=== PATIENT | female | born 1930 | race Caucasian/White ===

== ENCOUNTER 2016-06-16 08:32 | Emergency (ER) | payer BC, MEDICARE ==
[2016-06-16] MEDS ORDERED: KETOROLAC TROMETHAMINE 60 MG/2 ML VIAL IM ONE ×2 (09:21→09:24)
[2016-06-16 09:53] LABS: Hematocrit 35.7 % (37.0-47.0); Hemoglobin 12.2 gm/dL (12.5-16.0); Mean Cell Volume 86.2 fl (78-100); Mean Corpuscular Hemoglobin 29.5 pg (27-31); Mean Corpuscular Hgb Conc 34.2 g/dl (32-36); Mean Platelet Volume 9.3 fl (6.0-9.5); Neutrophil # 7.1 K/mm3 (1.3-6.0); Neutrophil % 74.8 % (42-75.0); Platelet Count 220 K/mm3 (150-450); Red Blood Count 4.14 M/mm3 (4.2-5.4); Red Cell Distribution Width 12.3 % (11.5-14.0); White Blood Count 9.5 K/mm3 (4.0-10.5)
[2016-06-16] MEDS ORDERED: MELOXICAM 15 MG TABLET PO ONE (10:00)
[2016-06-16 10:15] LABS: Albumin * 3.7 gm/dl (3.4-5.0); Anion Gap 14.2 mmol/L (6.8-13.8); BUN/Creatinine Ratio 22.1 (9.0-21.6); Bilirubin, Total 0.4 mg/dL (0.0-1.1); Ca. Corrected For Albumin 9.5 mg/dL (8.4-10.2); Calcium * 9.6 mg/dL (7.9-10.9); Carbon Dioxide 26.5 mmol/L (24-32.6); Potassium 4.7 mmol/L (3.4-4.6); T4 Free * 1.24 ng/dL (0.76-1.46); TSH * 1.413 uIU/mL (0.358-3.74); Total Protein 7.2 gm/dL (6.2-8.2)
--- NOTE | 2016-06-16 11:03 | ERNOTE ---
Medical Problem HPI - Narrative Date of Service: 06/16/16 - General Chief Complaint: General Assessment Time Seen by Provider: 06/16/16 09:05 Source: patient, family Exam Limitations: clinical condition - Immun/Allergies/Home Medications Immunizations: IMMUNIZATION HX Immunizations Up to Date Yes History of Influenza Vaccine Yes Hx Pneumococcal Vaccination Yes Allergies/Adverse Reactions: Allergies amlodipine Allergy (Verified 06/16/16 08:56) atorvastatin calcium [From Lipitor] Allergy (Verified 06/16/16 08:56) fluoxetine HCl [From Prozac] Allergy (Verified 06/16/16 08:56) minoxidil Allergy (Verified 06/16/16 08:56) Home Medications: HOME MEDICATIONS Aspirin [Aspirin EC] 81 mg PO DAILY 06/16/16 [Last Taken Unknown] Carvedilol [Coreg] 12.5 mg PO BID 06/16/16 [Last Taken Unknown] Felodipine [Felodipine ER] 2.5 mg PO DAILY 06/16/16 [Last Taken Unknown] Irbesartan [Avapro] 300 mg PO HS 06/16/16 [Last Taken Unknown] Levothyroxine Sodium [Synthroid] 100 mcg PO DAILY 06/16/16 [Last Taken Unknown] Meloxicam [Mobic] 15 mg PO DAILY #14 tab 06/16/16 [Last Taken Unknown] Methyl Salicylate/Menth/Camph [Salonpas Patch] 1 each TP PRN PRN 06/16/16 [Last Taken Unknown] Nitroglycerin [Nitrostat] 0.4 mg SL BID 06/16/16 [Last Taken Unknown] Omeprazole 40 mg PO TID 06/16/16 [Last Taken Unknown] Polyethylene Glycol 3350 [Miralax] 17 gm PO DAILY 06/16/16 [Last Taken Unknown] Simvastatin 20 mg PO DAILY 06/16/16 [Last Taken Unknown] clonazePAM [Klonopin] 0.5 mg PO TID 06/16/16 [Last Taken Unknown] - History of Present History Narrative: Hurts all over. 6 days ago, med change. tramadol stopped, tylenol #3 started. Still hurts all over. Tylenol #3 really isn't helping. Didn't sleep well last night due to pain, wants something to make the pain better. Timing: constant, getting worse Severity: mild, moderate Modifying Factors - (Improves): Present: other - nothing Modifying Factors - (Worsens): Present: movement Review of Systems - Review of Systems Constitutional: Present: no symptoms reported EYE: Present: no symptoms reported ENT: Present: no symptoms reported Respiratory: Present: no symptoms reported Cardiology: Present: no symptoms reported Gastrointestinal/Abdominal: Present: constipation Genitourinary: Present: no symptoms reported Musculoskeletal: Present: See HPI Skin: Present: no symptoms reported Neurological: Present: pre-existing deficit Endocrine: Present: no symptoms reported Hematologic/Lymphatic: Present: no symptoms reported Psych: Present: no symptoms reported All Other Systems: All systems neg except as marked - Patient's Past Medical History Patient History - Medical: Anxiety, Chronic Pain, Fibromyalgia, GERD, Hypothyroidism Patient History - Cardiac/Respiratory: Angina, Hypertension, Hyperlipidemia Patient History - Cancer: Colon Patient History - Surgical Procedures: Angioplasty, Cholecystectomy, Colonoscopy , Hysterectomy, Total Knee Replacement Patient History - Other: None - Social History Living Situations: assisted living Abuse History: No History of abuse Psych History: Hx of Anxiety Smoking Status: Never smoker Have you smoked in the past 12 months: No Do you dip or chew tobacco: No Alcohol Use: rarely - Immunizations Immunizations Up to Date: Yes Hx Pneumococcal Vaccination: Yes History of Influenza Vaccine: Yes Physical Exam - Physical Exam General Appearance: Present: wd/wn, alert, no apparent distress, anxious Eye Exam: Normal inspection: bilateral, PERRL: bilateral, EOMI: bilateral Ears, Nose, Throat: Present: normal ENT inspection, hearing grossly normal Neck: Present: normal inspection, nontender Respiratory: Present: no respiratory distress, normal breath sounds Cardiovascular/Chest: Present: regular rate, rhythm, no murmur Gastrointestinal/Abdominal: Present: normal bowel sounds, nontender, nondistended, soft, no organomegaly Extremity Exam: Present: extremity edema Neurological Exam: Present: alert, oriented Skin Exam: Present: normal color, warm/dry ED Progress - Results and Orders Patient's Lab Results:: I have reviewed the patient's lab results. - Vital Signs Patient's Vital Signs:: I have reviewed the patient's vital signs. Vital Signs: Vital Signs 06/16/16 08:42 Temperature 36.3 C L Pulse Rate 60 Respiratory 15 Rate Blood Pressure 130/76 O2 Sat by Pulse 96 Oximetry - Progress/Reassessment Chief Complaint: General Assessment Progress:: Improved Departure - Departure Clinical Impression: Hyponatremia Osteoarthritis Qualifiers: Osteoarthritis location: multiple joints Osteoarthritis type: primary Qualified Code(s): M15.0 - Primary generalized (osteo)arthritis Condition: Good Instructions: Osteoarthritis, Hyponatremia Additional Instructions: Followup with your doctor next week. Referrals: Lalo Real DO [Primary Care Provider] - Prescriptions: Meloxicam [Mobic] 15 mg PO DAILY #14 tab
[2016-06-16 11:19] VITALS: BP 154/88
== END 2016-06-16 11:24 | disposition short-term general hospital (02) ==
LOC: MERGE 08:32 → ER 08:32
DX: M15.0 Primary generalized (osteo)arthritis (principal); E87.1 Hypo-osmolality and hyponatremia

== ENCOUNTER 2016-11-08 10:53 | Emergency (ER) | payer BC ==
[2016-11-08 11:08] VITALS: BP 127/56
[2016-11-08] MEDS ORDERED: CYCLOBENZAPRINE HCL 10 MG TABLET ONE (11:35)
[2016-11-08] MEDS ORDERED: CYCLOBENZAPRINE HCL 10 MG TABLET PO ONE (11:37)
--- NOTE | 2016-11-08 11:46 | ERNOTE ---
Medical Problem HPI - Narrative Date of Service: 11/08/16 - General Chief Complaint: Neck Pain/Injury Time Seen by Provider: 11/08/16 11:23 Source: patient, family, RN notes reviewed, old records Exam Limitations: no limitations - Immun/Allergies/Home Medications Immunizations: IMMUNIZATION HX Immunizations Up to Date Yes History of Influenza Vaccine Yes Hx Pneumococcal Vaccination Yes Allergies/Adverse Reactions: Allergies amlodipine Allergy (Intermediate, Verified 11/08/16 11:09) atorvastatin calcium [From Lipitor] Allergy (Verified 11/08/16 11:09) fluoxetine HCl [From Prozac] Allergy (Verified 11/08/16 11:09) minoxidil Allergy (Verified 11/08/16 11:09) Home Medications: HOME MEDICATIONS Aspirin [Aspirin Enteric Coated] 81 mg PO DAILY 10/26/13 [Last Taken 10/20/13 07 :00] Docusate Sodium [Colace] 100 mg PO DAILY 10/26/13 [Last Taken 10/20/13 17:30] Multivitamin [Multi-Vitamin Daily] 1 each PO DAILY 10/26/13 [Last Taken 08:00] Carvedilol [Coreg] 12.5 mg PO BID 06/16/16 [Last Taken Unknown] Felodipine [Felodipine ER] 2.5 mg PO DAILY 06/16/16 [Last Taken Unknown] Irbesartan [Avapro] 300 mg PO HS 06/16/16 [Last Taken Unknown] Levothyroxine Sodium [Synthroid] 100 mcg PO DAILY 06/16/16 [Last Taken Unknown] Methyl Salicylate/Menth/Camph [Salonpas Patch] 1 each TP PRN PRN 06/16/16 [Last Taken Unknown] Nitroglycerin [Nitrostat] 0.4 mg SL BID 06/16/16 [Last Taken Unknown] Omeprazole 40 mg PO TID 06/16/16 [Last Taken Unknown] Polyethylene Glycol 3350 [Miralax] 17 gm PO DAILY 06/16/16 [Last Taken Unknown] Simvastatin 20 mg PO DAILY 06/16/16 [Last Taken Unknown] clonazePAM [Klonopin] 0.5 mg PO TID 06/16/16 [Last Taken Unknown] Acetaminophen with Codeine [Tylenol-Codeine 300 MG/30 MG] 300 mg PO BID [Last Taken Unknown] Cyclobenzaprine HCl [Flexeril] 10 mg PO TID PRN #20 tab 11/08/16 [Last Taken Unknown] - History of Present History Narrative: 86 year old female brought to the ED by her daughter for right sided neck pain and stiffness that began 3 weeks ago without any injury. The patient resides at [facility]. She has been taking Tylenol #3 for pain with no improvement. She has also had a massage and has seen a chiropractor. She has an extensive history of arthritis. Date (Duration): 10/18/16 Review of Systems - Review of Systems Constitutional: Absent: recent illness, fever EYE: Present: no symptoms reported ENT: Absent: sore throat, throat swelling Respiratory: Absent: shortness of breath, orthopnea Cardiology: Present: no symptoms reported Gastrointestinal/Abdominal: Absent: abdominal pain, eating less, drinking less Genitourinary: Present: no symptoms reported Musculoskeletal: Present: muscle pain, muscle stiffness, neck pain. Absent: back pain Skin: Absent: rash, lesions, lumps, change in color Neurological: Absent: headache, dizziness/light-headedness, weakness, numbness, tingling Endocrine: Present: no symptoms reported Hematologic/Lymphatic: Present: no symptoms reported Psych: Present: no symptoms reported - Patient's Past Medical History Patient History - Medical: Anxiety, Arthritis, Chronic Pain, Fibromyalgia, GERD , Hypothyroidism Patient History - Cardiac/Respiratory: Angina, Hypertension, Hyperlipidemia, Myocardial Infarction Patient History - Cancer: Colon, No Hx of Cancer Patient History - Surgical Procedures: Appendectomy, Cholecystectomy, Hysterectomy, Total Knee Replacement Patient History - Other: None LMP (females 10-50): Menopausal - Family History Mother Family History - Medical: Father Family History - Medical: Family History - Cardiac/Respiratory: Cardiac Arrest, CHF - Social History Living Situations: group home Abuse History: No History of abuse Psych History: Hx of Anxiety, Hx of Depression Does anyone smoke in the home?: No Smoking Status: Never smoker Alcohol Use: none Drug Use: none - Immunizations Immunizations Up to Date: Yes Hx Pneumococcal Vaccination: Yes History of Influenza Vaccine: Yes Physical Exam - Physical Exam General Appearance: Present: wd/wn, alert, no apparent distress, other - Appropriately dressed and groomed, appears younger than reported age Ears, Nose, Throat: Present: normal ENT inspection Neck: Present: supple, limited range of motion, tender lateral - right. Absent : lymphadenopathy (R), lymphadenopathy (L), tender posterior midline, thyromegaly Respiratory: Present: no respiratory distress, normal breath sounds, no accessory muscle use, lungs clear Cardiovascular/Chest: Present: regular rate, rhythm, no murmur Extremity Exam: Present: normal inspection, normal range of motion Neurological Exam: Present: alert, oriented, normal mood/affect, no motor/ sensory deficits Skin Exam: Present: normal color, warm/dry ED Progress - Vital Signs Patient's Vital Signs:: I have reviewed the patient's vital signs. Vital Signs: Vital Signs 11/08/16 11/08/16 10:54 11:00 Temperature 36.8 C 36.6 C Pulse Rate 54 L Respiratory 16 Rate Blood Pressure 160/66 127/56 O2 Sat by Pulse 96 Oximetry - Progress/Reassessment Chief Complaint: Neck Pain/Injury Progress:: Unchanged Departure - Departure Clinical Impression: Neck muscle strain Qualifiers: Encounter type: initial encounter Qualified Code(s): S16.1XXA - Strain of muscle, fascia and tendon at neck level, initial encounter Disposition: Home Follow Up Needed Condition: Stable Instructions: Cervical Sprain, [id number] Additional Instructions: Try using heat on the sore area Muscle relaxant will cause drowsiness - take with regular Tylenol - NOT the Tylenol with codeine Follow up with Dr. Real if no improvement in 1 week Referrals: Lalo Real DO [Primary Care Provider] - Prescriptions: Cyclobenzaprine HCl [Flexeril] 10 mg PO TID PRN #20 tab PRN Reason: MUSCLE SPASMS
== END 2016-11-08 11:50 | disposition home or self-care (01) ==
LOC: ER 10:53
DX: S16.1XXA Strain of muscle, fascia and tendon at neck level, initial encounter (principal); X58.XXXA Exposure to other specified factors, initial encounter; Y93.9 Activity, unspecified; Y92.9 Unspecified place or not applicable; Y99.9 Unspecified external cause status; I10 Essential (primary) hypertension; K21.9 Gastro-esophageal reflux disease without esophagitis; E03.9 Hypothyroidism, unspecified; G89.29 Other chronic pain; Z85.038 Personal history of other malignant neoplasm of large intestine

== ENCOUNTER 2017-03-08 20:20 | Emergency (ER) | payer BC ==
[2017-03-08] MEDS ORDERED: ASPIRIN 81 MG TAB.CHEW PO ONE (20:35)
--- NOTE | 2017-03-08 20:39 | ERNOTE ---
Chest Pain/Cardiac HPI Date of Service: 03/08/17 Chief Complaint: Chest Pain Time Seen by Provider: 03/08/17 20:26 Source: patient Immunizations: IMMUNIZATION HX Immunizations Up to Date Yes History of Influenza Vaccine No Hx Pneumococcal Vaccination Yes Allergies/Adverse Reactions: Allergies amlodipine Allergy (Intermediate, Verified 03/08/17 20:31) atorvastatin calcium [From Lipitor] Allergy (Verified 03/08/17 20:31) fluoxetine HCl [From Prozac] Allergy (Verified 03/08/17 20:31) minoxidil Allergy (Verified 03/08/17 20:31) Home Medications: HOME MEDICATIONS Aspirin [Aspirin Enteric Coated] 81 mg PO DAILY 10/26/13 [Last Taken 10/20/13 07 :00] Docusate Sodium [Colace] 100 mg PO DAILY 10/26/13 [Last Taken 10/20/13 17:30] Multivitamin [Multi-Vitamin Daily] 1 each PO DAILY 10/26/13 [Last Taken 08:00] Carvedilol [Coreg] 12.5 mg PO BID 06/16/16 [Last Taken Unknown] Felodipine [Felodipine ER] 2.5 mg PO DAILY 06/16/16 [Last Taken Unknown] Irbesartan [Avapro] 300 mg PO HS 06/16/16 [Last Taken Unknown] Levothyroxine Sodium [Synthroid] 100 mcg PO DAILY 06/16/16 [Last Taken Unknown] Methyl Salicylate/Menth/Camph [Salonpas Patch] 1 each TP PRN PRN 06/16/16 [Last Taken Unknown] Nitroglycerin [Nitrostat] 0.4 mg SL BID 06/16/16 [Last Taken Unknown] Omeprazole 40 mg PO TID 06/16/16 [Last Taken Unknown] Polyethylene Glycol 3350 [Miralax] 17 gm PO DAILY 06/16/16 [Last Taken Unknown] Simvastatin 20 mg PO DAILY 06/16/16 [Last Taken Unknown] clonazePAM [Klonopin] 0.5 mg PO TID 06/16/16 [Last Taken Unknown] Acetaminophen with Codeine [Tylenol-Codeine 300 MG/30 MG] 300 mg PO BID [Last Taken Unknown] Cyclobenzaprine HCl [Flexeril] 10 mg PO TID PRN #20 tab 11/08/16 [Last Taken Unknown] Narrative: This is an 86-year-old female with a past medical history of "angina" and comes to the emergency department with a stuttering type chest pain. She reports the 2:00 this afternoon while she was watching television she developed a slow aching pain in her central chest. Started to get worse so she took a nitroglycerin which improved it but didn't take it away. A short time later she took a second nitroglycerin and the pain went away. She has had shortness of breath with this. She denies nausea or diaphoresis. The patient says the pain stayed away until about 7:00 when it came back. She took a nitroglycerin and waited didn't go away she activated EMS. EMS arrived and administered another nitroglycerin and she is again chest pain-free. She has not had any fever or chills nausea or vomiting diaphoresis. She does have it history of some sort of heart surgery "done on the lower part of my heart" 8-9 years ago. Patient says that she's had similar pain in the past and was told it was "angina " she doesn't have any dizziness blurred vision or neurologic symptoms Review of Systems - Review of Systems Constitutional: Present: no symptoms reported EYE: Present: no symptoms reported ENT: Present: no symptoms reported Respiratory: Present: shortness of breath Cardiology: Present: chest pain Gastrointestinal/Abdominal: Present: no symptoms reported. Absent: nausea, vomiting, diarrhea, constipation Genitourinary: Present: no symptoms reported Musculoskeletal: Present: no symptoms reported Skin: Present: no symptoms reported Neurological: Present: no symptoms reported Endocrine: Present: no symptoms reported - Patient's Past Medical History Patient History - Medical: Anxiety, Arthritis, Chronic Pain, Fibromyalgia, GERD , Hypothyroidism Patient History - Cardiac/Respiratory: Angina, Hypertension, Hyperlipidemia, Myocardial Infarction Patient History - Cancer: Colon, No Hx of Cancer Patient History - Surgical Procedures: Appendectomy, Cholecystectomy, Hysterectomy, Total Knee Replacement Patient History - Other: None LMP (females 10-50): Menopausal - Family History Mother Family History - Medical: Father Family History - Medical: Family History - Cardiac/Respiratory: Cardiac Arrest, CHF - Social History Living Situations: assisted living Abuse History: No History of abuse Psych History: Hx of Anxiety, Hx of Depression - Immunizations Immunizations Up to Date: Yes Hx Pneumococcal Vaccination: Yes History of Influenza Vaccine: No Physical Exam - Physical Exam General Appearance: Present: wd/wn, alert, no apparent distress Head Exam: Present: normal inspection, no evidence of injury Eye Exam: Normal inspection: bilateral, PERRL: bilateral, EOMI: bilateral Ears, Nose, Throat: Present: normal ENT inspection, normal pharynx Neck: Present: normal inspection, nontender Respiratory: Present: no respiratory distress, normal breath sounds, no accessory muscle use, chest nontender, lungs clear Cardiovascular/Chest: Present: regular rate, rhythm, no murmur Gastrointestinal/Abdominal: Present: normal bowel sounds, nontender, nondistended, soft Back Exam: Present: normal inspection, normal range of motion, no CVA tenderness Extremity Exam: Present: normal inspection, non-tender, no edema Neurological Exam: Present: alert, oriented, normal mood/affect, no motor/ sensory deficits Skin Exam: Present: normal color, warm/dry Lymphatic Exam: Present: no adenopathy ED Progress - Results and Orders Patient's Lab Results:: I have reviewed the patient's lab results. - Vital Signs Patient's Vital Signs:: I have reviewed the patient's vital signs. Vital Signs: Vital Signs 03/08/17 03/08/17 20:26 20:32 Temperature 36.7 C Pulse Rate 79 81 Respiratory 14 Rate Blood Pressure 154/57 O2 Sat by Pulse 96 Oximetry - EKG EKG: NSR EKG read: Interp. by me EKG Comments: Sinus rhythm at 77. First-degree AV block with [place] 214. Normal axis. Normal intervals. No signs of ST segment depression. Flattening in aVL. No acute ischemic changes - X-Ray X-Ray #1 X-Ray: chest Interpretation: Interp. by me X-ray Comments: No acute cardiopulmonary disease no acute disease X-Ray #2 X-Ray: chest Interpretation: Interp. by me X-ray Comments: The initial chest x-ray was one view. This showed some atelectasis or increased vascular markings in the right middle. This was felt to be poor inspiration. Repeated. - Progress/Reassessment Chief Complaint: Chest Pain Progress:: Improved Progress Note-Subjective: 03/08/17 22:16 The patient has been here for a couple of hours. Chest pain has not returned. Plan - Plan Plan: This is an 86-year-old female with risk factors who comes to the ER was very concerning pain. Central chest pain associated with shortness of breath which comes and goes. It lasts for an hour or more at a time. Seems to resolve with nitroglycerin. Patient has not had a stress test in more than a year. I believe this patient warrants mission to the hospital and consideration of stress test The patient sees Dr. Adan Qiu who is a inspector [employer] in [place] at [facility]. She says that she would like to be transferred there if she is going to need a stress test or something else. I will speak to this physician. She remains chest pain-free I spoke with the patient's cardiology group in [place]. They request that the patient have 2 sets of enzymes 6 after the symptoms stopped. The first set would be right with the patient gets here milliseconds that needs to be 6 hours after the chest pain. They requested a repeat EKG. If those are okay the patient could go home and follow-up with them right away on Friday. I discussed this with the patient and her family and they are accepting of this plan. They understand there is a very tiny chance that something would happen while they are at home and they are willing to accept this chance Repeat EKG shows normal sinus rhythm with first-degree AV block NJ interval is 231. Frequent PACs no ST segment changes no acute ischemic changes If the patient's repeat troponin is negative she will be discharged home. She is aware that she needs to follow up with her cardiology group on Friday. Both she and her daughter have verbalized understanding Departure Clinical Impression: Chest pain Qualifiers: Chest pain type: unspecified Qualified Code(s): R07.9 - Chest pain, unspecified - Departure Disposition: Home self-care Condition: Fair Instructions: Chest Pain Observation Additional Instructions: As we discussed her symptoms are concerning for your heart having acute problem , but all of our tests have failed to show something. This is not a perfect way of evaluating her heart, but it is the best available at this moment. I want you to go home and on Friday and he did call your inspector [employer] office. Told them he was seen in the emergency department and that the emergency department physician would like you to get a stress test done as soon as possible. He should be able to get a stress test Friday or Friday. If you have recurrent severe chest pain or new concerning symptom should need to return to the ER. Call your family doctor and set up a follow-up appointment.
[2017-03-08 20:42] LABS: Hemoglobin 11.1 gm/dL (12.5-16.0); Mean Cell Volume 92.9 fl (78-100); Mean Corpuscular Hemoglobin 30.3 pg (27-31); Mean Corpuscular Hgb Conc 32.6 g/dl (32-36); Mean Platelet Volume 10.3 fl (6.0-9.5); Neutrophil # 8.1 K/mm3 (1.3-6.0); Neutrophil % 79.9 % (42-75.0); Platelet Count 285 K/mm3 (150-450); Red Blood Count 3.66 M/mm3 (4.2-5.4); Red Cell Distribution Width 12.5 % (11.5-14.0); White Blood Count 10.2 K/mm3 (4.0-10.5)
[2017-03-08 21:04] LABS: ALT 13 U/L (19-67); AST 13 U/L (0-48); Albumin * 3.5 gm/dl (3.4-5.0); Alkaline Phosphatase * 62 U/L (50-170); Anion Gap 16.3 mmol/L (6.8-13.8); BUN/Creatinine Ratio 20.4 (9.0-21.6); Bilirubin, Total 0.3 mg/dL (0.0-1.1); Blood Urea Nitrogen 32 mg/dL (3-23); Ca. Corrected For Albumin 9.8 mg/dL (8.4-10.2); Calcium * 9.7 mg/dL (7.9-10.9); Carbon Dioxide 24.1 mmol/L (24-32.6); Chloride 98 mmol/L (97-106); Glucose * 131 mg/dL (70-110); Potassium 4.4 mmol/L (3.4-4.6); Sodium 134 mmol/L (132-142); Troponin I Less than 0.017 ng/ml (0.00-0.10)
[2017-03-08 21:51] LABS: Urine Appearance Clear; Urine Bilirubin Negative (NEGATIVE); Urine Blood Negative /ul (NEGATIVE); Urine Color Yellow; Urine Ketone Negative (NEGATIVE)
[2017-03-08 21:52] LABS: Urine Bacteria None Seen; Urine Nitrite Negative (NEGATIVE); Urine Protein 15 mg/dL (NEGATIVE); Urine RBC None Seen /hpf (0-5); Urine Urobilinogen Normal (NORMAL); Urine WBC None Seen /hpf (0-5)
[2017-03-09 02:25] VITALS: BP 171/84
== END 2017-03-09 02:24 | disposition home or self-care (01) ==
LOC: ER 20:20
DX: R07.9 Chest pain, unspecified (principal); Z85.038 Personal history of other malignant neoplasm of large intestine

== ENCOUNTER 2017-07-13 08:26 | Inpatient (IN) | payer MEDICARE, BC ==
[2017-07-13] MEDS ORDERED: METHYLPREDNISOLONE SOD SUCC/PF 40 MG/ML VIAL IV ONE (08:38)
[2017-07-13] MEDS ORDERED: ALBUTEROL SULFATE/IPRATROPIUM 3 ML NEBU IH ONE ×2 (08:38→09:42)
--- NOTE | 2017-07-13 08:50 | ERNOTE ---
Dyspnea - General Presenting Symptoms: shortness of breath, wheezing Time Seen by Provider: 07/13/17 08:30 Source: patient Exam Limitations: no limitations - Immun/Allergies/Home Medications Immunizations: IMMUNIZATION HX Immunizations Up to Date Yes History of Influenza Vaccine Yes Hx Pneumococcal Vaccination Yes Allergies/Adverse Reactions: Allergies amlodipine Allergy (Intermediate, Verified 07/10/17 08:37) atorvastatin calcium [From Lipitor] Allergy (Verified 07/10/17 08:37) fluoxetine HCl [From Prozac] Allergy (Verified 07/10/17 08:37) minoxidil Allergy (Verified 07/10/17 08:37) Home Medications: HOME MEDICATIONS Aspirin [Aspirin Enteric Coated] 81 mg PO DAILY 10/26/13 [Last Taken 10/20/13 07 :00] Docusate Sodium [Colace] 100 mg PO DAILY 10/26/13 [Last Taken 10/20/13 17:30] Multivitamin [Multi-Vitamin Daily] 1 each PO DAILY 10/26/13 [Last Taken 08:00] Carvedilol [Coreg] 12.5 mg PO BID 06/16/16 [Last Taken Unknown] Felodipine [Felodipine ER] 2.5 mg PO DAILY 06/16/16 [Last Taken Unknown] Irbesartan [Avapro] 300 mg PO HS 06/16/16 [Last Taken Unknown] Levothyroxine Sodium [Synthroid] 100 mcg PO DAILY 06/16/16 [Last Taken Unknown] Methyl Salicylate/Menth/Camph [Salonpas Patch] 1 each TP PRN PRN 06/16/16 [Last Taken Unknown] Nitroglycerin [Nitrostat] 0.4 mg SL BID 06/16/16 [Last Taken Unknown] Omeprazole 40 mg PO TID 06/16/16 [Last Taken Unknown] Polyethylene Glycol 3350 [Miralax] 17 gm PO DAILY 06/16/16 [Last Taken Unknown] Simvastatin 20 mg PO DAILY 06/16/16 [Last Taken Unknown] clonazePAM [Klonopin] 0.5 mg PO TID 06/16/16 [Last Taken Unknown] Acetaminophen with Codeine [Tylenol-Codeine 300 MG/30 MG] 300 mg PO BID [Last Taken Unknown] Cyclobenzaprine HCl [Flexeril] 10 mg PO TID PRN #20 tab 11/08/16 [Last Taken Unknown] Albuterol Sulfate [Ventolin HFA] 2 puff IH Q6H PRN 7 Days inhaler 07/10/17 [ Last Taken Unknown] Azithromycin [Zithromax] 250 mg PO DAILY #6 tablet 07/10/17 [Last Taken Unknown] predniSONE [Deltasone] 20 mg PO BID #10 tablet 07/10/17 [Last Taken Unknown] Acetaminophen with Codeine [Tylenol with Codeine #3 Tablet] 1 each PO Q6H PRN [Last Taken Unknown] Meloxicam [Mobic] 15 mg PO DAILY 07/13/17 [Last Taken Unknown] - History of Present Illness Narrative: Patient was seen by me 3 days ago here for bronchitis and bronchospasm. Patient appeared to have bronchitis and was started on antibiotics and oral steroids and a Ventolin inhaler, however she has not gotten better and in fact she feels like she's gotten somewhat worse. She states she is having some difficulty controlling her blood pressure at herself living facility as well. She rates the symptoms as at least moderate in severity. 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 Initiating event: Reports: upper resp illness Frequency of episodes: Reports: occassional episodes Modifying Factors - (Improves): Reports: nothing Modifying Factors (Worsens): Reports: coughing Prior Treatment: Reports: recently seen, treated by physician, currently on antibiotics Review of Systems - Review of Systems Constitutional: Present: See HPI EYE: Present: no symptoms reported ENT: Present: no symptoms reported Respiratory: Present: See HPI Cardiology: Present: no symptoms reported Gastrointestinal/Abdominal: Present: no symptoms reported Genitourinary: Present: no symptoms reported Musculoskeletal: Present: no symptoms reported Skin: Present: no symptoms reported Neurological: Present: no symptoms reported Endocrine: Present: no symptoms reported Hematologic/Lymphatic: Present: no symptoms reported Psych: Present: no symptoms reported - Patient's Past Medical History Patient History - Medical: Anxiety, Arthritis, Chronic Pain, Fibromyalgia, GERD , Hypothyroidism Patient History - Cardiac/Respiratory: Angina, Hypertension, Hyperlipidemia, Myocardial Infarction Patient History - Cancer: Colon, No Hx of Cancer Patient History - Surgical Procedures: Appendectomy, Cholecystectomy, Hysterectomy, Total Knee Replacement Patient History - Other: None - Family History Mother Family History - Medical: Father Family History - Medical: Family History - Cardiac/Respiratory: Cardiac Arrest, CHF - Social History Abuse History: No History of abuse Psych History: Hx of Anxiety, Hx of Depression - Immunizations Immunizations Up to Date: Yes Hx Pneumococcal Vaccination: Yes History of Influenza Vaccine: Yes Physical Exam - Physical Exam General Appearance: Present: wd/wn, alert, moderate distress Head Exam: Present: normal inspection, no evidence of injury Eye Exam: Normal inspection: bilateral, PERRL: bilateral Ears, Nose, Throat: Present: normal ENT inspection, H, normal pharynx Neck: Present: normal inspection, nontender Respiratory: Present: no accessory muscle use, chest nontender, respiratory distress, rhonchi, wheezing Cardiovascular/Chest: Present: regular rate, rhythm, no murmur, normal peripheral pulses Gastrointestinal/Abdominal: Present: normal bowel sounds, nontender, nondistended, soft, no organomegaly Rectal Exam: Present: deferred Back Exam: Present: normal inspection, normal range of motion Extremity Exam: Present: normal inspection, non-tender, no edema, normal range of motion Neurological Exam: Present: alert, oriented, normal mood/affect Skin Exam: Present: normal color, warm/dry Lymphatic Exam: Present: no adenopathy ED Progress - Results and Orders Patient's Lab Results:: I have reviewed the patient's lab results. - Vital Signs Patient's Vital Signs:: I have reviewed the patient's vital signs. - EKG EKG: NSR EKG read: Interp. by me - X-Ray X-Ray #1 X-Ray: chest Interpretation: Reviewed by me Plan - Plan Plan: Patient is failed outpatient treatment and put her in for more aggressive pulmonary care. Departure Clinical Impression: Bronchitis, Bronchospasm - Departure Disposition: Still a patient Condition: Fair
[2017-07-13 08:56] LABS: Hemoglobin 11.5 gm/dL (12.5-16.0); Mean Cell Volume 86.4 fl (78-100); Mean Corpuscular Hemoglobin 30.1 pg (27-31); Mean Corpuscular Hgb Conc 34.8 g/dl (32-36); Neutrophil # 3.9 K/mm3 (1.3-6.0); Neutrophil % 70.5 % (42-75.0); Platelet Count 201 K/mm3 (150-450); Red Blood Count 3.82 M/mm3 (4.2-5.4); Red Cell Distribution Width 12.7 % (11.5-14.0); White Blood Count 5.5 K/mm3 (4.0-10.5)
[2017-07-13 09:15] LABS: ALT 19 U/L (19-67); AST 20 U/L (0-48); Albumin * 3.4 gm/dl (3.4-5.0); Alkaline Phosphatase * 55 U/L (50-170); Anion Gap 13.6 mmol/L (6.8-13.8); BNP * 3044 pg/mL (5-550); BUN/Creatinine Ratio 21.2 (9.0-21.6); Bilirubin, Total 0.4 mg/dL (0.0-1.1); Blood Urea Nitrogen 22 mg/dL (3-23); Ca. Corrected For Albumin 9.7 mg/dL (8.4-10.2); Calcium * 9.5 mg/dL (7.9-10.9); Carbon Dioxide 27.3 mmol/L (24-32.6); Chloride 99 mmol/L (97-106); Glucose * 113 mg/dL (70-110); Potassium 3.9 mmol/L (3.4-4.6); Sodium 136 mmol/L (132-142); Total Protein 6.6 gm/dL (6.2-8.2); Troponin I Less than 0.017 ng/ml (0.00-0.10)
[2017-07-13] MEDS ORDERED: METHYLPREDNISOLONE SOD SUCC/PF 125 MG/2 ML VIAL ONE (09:42)
[2017-07-13] MEDS ORDERED: ALBUTEROL SULFATE/IPRATROPIUM 3 ML NEBU IH SCH ×2 (14:30→14:45)
--- NOTE | 2017-07-13 14:44 | HP ---
Chief Complaint - Chief Complaint Date of Service: 07/13/17 Time of Service: 15:30 Chief Complaint: Shortness of breath and wheezing for the last 3 days. History of Present Illness: Patient is a 87-year-old WF with a history of HTN, CAD[OK in 2009 with PTCA to OM1 and with repeat cath showing diffuse collaterals and occluded OM1], carotid artery disease[50-70% blockage bilaterally] OA, diverticulosis, hypothyroidism who came into the ER for evaluation of SOB, wheezing for the last 3-4 days. She was seen 3 days ago and was started on oral prednisone, Ventolin inhaler and an oral antibiotic and had no improvement. She was given IV steroids and DuoNeb with improvement in the ER. CXR was negative for infiltrate. WBC 5.5, troponin <0.1017, BNP 3044. She was admitted into observation for further care and treatment. - Patient's Past Medical History Additional Info: PAST MEDICAL HISTORY: Hypertension, hyperlipidemia. Coronary artery disease: [place] in 2009 with PTCA to OM1; repeat cath in 2013- chronically occluded circumflex. Carotid artery disease: Bilaterally 50-70% blockage. Diverticulosis. Hypothyroidism. ObesityBMI 35. Osteoarthritis with RT TKA Anxiety. Chronic constipation. Additional Info: PAST SURGICAL HISTORY: Appendectomy Bilateral cataract surgery Laparoscopic cholecystectomy-12/2014 Hysterectomy. RT TKA. Multiple colonoscopies. Patient History - Other: None - Family History Mother Family History - Medical: - - 28[uterine infection]. Father Family History - Medical: - 73- [place],CAD - Social History Living Situations: assisted living Abuse History: No History of abuse Psych History: Hx of Anxiety, Hx of Depression Smoking Status: Never smoker Have you smoked in the past 12 months: No Do you dip or chew tobacco: No Alcohol Use: none Drug Use: none - Immunizations Immunizations Up to Date: Yes Hx Pneumococcal Vaccination: Yes History of Influenza Vaccine: Yes Review Of Systems (GEN) - Review of Systems Generalized/Overall Review: Absent: Chills, Fever Respiratory: Present: Cough, Wheezing Abdominal: Absent: Nausea, Vomiting, Diarrhea Allergies/Adverse Reactions: Allergies Allergy/AdvReac Type Severity Reaction Status Date / Time amlodipine Allergy Intermediate Verified 07/13/17 12:13 atorvastatin calcium Allergy Verified 07/13/17 12:13 [From Lipitor] fluoxetine HCl [From Prozac] Allergy Verified 07/13/17 12:13 minoxidil Allergy Verified 07/13/17 12:13 Home Medications: HOME MEDICATIONS Aspirin [Aspirin Enteric Coated] 81 mg PO DAILY 10/26/13 [Last Taken 07/13/17 08 :00] Multivitamin [Multi-Vitamin Daily] 1 each PO DAILY 10/26/13 [Last Taken 08:00] Carvedilol [Coreg] 12.5 mg PO BID 06/16/16 [Last Taken 07/13/17 08:00] Felodipine [Felodipine ER] 2.5 mg PO DAILY 06/16/16 [Last Taken 07/13/17 07:00] Irbesartan [Avapro] 300 mg PO HS 06/16/16 [Last Taken 07/12/17 20:00] Levothyroxine Sodium [Synthroid] 100 mcg PO DAILY 06/16/16 [Last Taken 07/13/17 08:00] Methyl Salicylate/Menth/Camph [Salonpas Patch] 1 each TP PRN PRN 06/16/16 [Last Taken Unknown] Nitroglycerin [Nitrostat] 0.4 mg SL BID PRN 06/16/16 [Last Taken Unknown] Omeprazole 40 mg PO TID 06/16/16 [Last Taken 07/13/17 07:00] Polyethylene Glycol 3350 [Miralax] 17 gm PO DAILY PRN 06/16/16 [Last Taken Unknown] Simvastatin 20 mg PO DAILY 06/16/16 [Last Taken 07/12/17 20:00] clonazePAM [Klonopin] 0.5 mg PO TID 06/16/16 [Last Taken 07/13/17 08:00] Acetaminophen with Codeine [Tylenol-Codeine 300 MG/30 MG] 300 mg PO BID [Last Taken 07/13/17 08:00] Albuterol Sulfate [Ventolin HFA] 2 puff IH Q6H PRN 7 Days inhaler 07/10/17 [ Last Taken Unknown] Azithromycin [Zithromax] 250 mg PO DAILY #6 tablet 07/10/17 [Last Taken 20:00] predniSONE [Deltasone] 20 mg PO BID #10 tablet 07/10/17 [Last Taken 07/13/17 08: 00] Acetaminophen [Tylenol] 1,000 mg PO TID 07/13/17 [Last Taken 07/13/17 08:00] Meloxicam [Mobic] 15 mg PO DAILY 07/13/17 [Last Taken 07/13/17 08:00] Exam - Exam Vital Signs: Vital Signs - Last Taken Temp 36.4 C L 07/13/17 11:45 Pulse 76 07/13/17 14:16 Resp 20 07/13/17 11:45 BP 182/80 07/13/17 12:24 Pulse Ox 96 07/13/17 11:45 Constitutional: Present: Elderly, Obese, Looks Younger than stated age - A and O x 3, in NAD. ENT Exam: Present: hearing grossly normal, dry mucous membranes Eye Exam: left eye: PERRL, EOMI Neck: Present: normal inspection, trachea midline Breasts: Present: Exam deferred Respiratory: Present: other - DIFFUSE BILATERAL WHEEZING; no crackles, no rhonchi. Cardiovascular/Chest: Present: regular rate, rhythm. Absent: tachycardia Peripheral Pulses: carotid (R): 2+, carotid (L): 2+ Abdomen: Present: Normal bowel sounds, soft, nontender, obese /Rectal: Present: Exam deferred Extremity: Present: normal inspection, no pedal edema Skin Exam: Present: normal color, warm/dry Appearance: Present: appropriate appearance, appropriate insight Diagnostic Studies: Laboratory Tests 07/13/17 08:55 WBC 5.5 Hgb 11.5 L Hct 33.0 L Plt Count 201 07/13/17 08:55 Plasma Sodium 136 Potassium 3.9 Chloride 99 Carbon Dioxide 27.3 BUN 22 Creatinine 1.04 Est GFR (Non-Af Amer) 53 L D Random Glucose 113 H Calcium Adj for Albumin 9.7 Total Bilirubin 0.4 AST 20 ALT 19 Alkaline Phosphatase 55 Total Protein 6.6 Albumin 3.4 07/13/17 08:55 Troponin I < 0.017 B-Natriuretic Peptide 3044 H Mycoplasma pneumon IgM non reactive CXR PA/lateral: 07/13/17: Cardiac silhouette is stable but enlarged. Pulmonary vasculature is normal. Osseous structures are WNL for age. IMPRESSION: No acute cardiopulmonary processes detected. Assessment/Plan - Narrative Narrative: 1. BRONCHITIS WITH BRONCHOSPASM: Solu-Medrol 60 mg IV every 6 hours. PPI 30 minutes before breakfast. DuoNeb IH 4 times a day. Pulmocort 0.5 mg IH twice a day. IV fluids normal saline at 50 mL an hour. 2. HYPERTENSION: Continue Felodipine ER 10 mg in a.m., Avapro [ Ibesartan 300 mg] in p.m. and carvedilol 12.5 mg twice a day. 3. CAD: S/P [place] in 2009; PTCA to NAT. Repeat cath in 2013 occluded OM1. 4. CHRONIC GERD: Omeprazole 40 mg 30 minutes before breakfast. 5. CHRONIC ANXIETY: Clonazepam 0.5 mg 3 times a day. 6. OTHER CHRONIC PROBLEMS: These include osteoarthritis with RT TKA, diverticulosis, carotid artery stenoses[60-70% bilaterally], chronic constipation, colon polyps, obesity [BMI- 35.0] which were reviewed and stable. 5. DVT PROPHYLAXIS: Ambulate-in observation status. CODE STATUS: DO NOT RESUSCITATE. - Assessment/Plan (1) Bronchitis with bronchospasm Problem: Acute (2) Hypertension Problem: Chronic Qualifiers: Hypertension type: essential hypertension Qualified Code(s): I10 - Essential (primary) hypertension (3) CAD (coronary artery disease), [place] coronary artery Assessment: OK in 2009 - PTCA to OM[ repeat cath in 2014 shows blocked circumflex system]. Problem: Chronic Qualifiers: [place] vs. transplanted heart: [place] heart (4) Chronic GERD Problem: Chronic (5) Anxiety Problem: Chronic
[2017-07-13] MEDS ORDERED: FELODIPINE 2.5 MG PO SCH (14:45)
[2017-07-13] MEDS: NORMAL SALINE 1,000 ML IV PRN (14:50)
[2017-07-13] MEDS: ALBUTEROL SULFATE/IPRATROPIUM 3 ML NEBU IH SCH ×2 (15:29→19:26)
[2017-07-13] MEDS: BUDESONIDE 0.5 MG/2 ML VIAL.NEB IH SCH ×2 (15:33→19:23)
[2017-07-13] MEDS: METHYLPREDNISOLONE SOD SUCC 60 MG in WATER FOR INJ.,BACTERIOSTATIC 0 ML IV SCH ×2 (16:12→21:22)
[2017-07-13] MEDS: FELODIPINE 5 MG TAB.SR.24H PO SCH (16:12)
[2017-07-13] MEDS: CARVEDILOL 12.5 MG TABLET PO SCH ×2 (16:12→21:23)
[2017-07-13] MEDS: clonazePAM 0.5 MG TABLET PO SCH (16:15)
[2017-07-13] MEDS ORDERED: BUDESONIDE 0.25 MG/2 ML VIAL.NEB IH SCH (19:00)
[2017-07-13] MEDS: POLYETHYLENE GLYCOL 3350 119 GM BTL PO SCH (19:30)
[2017-07-13] MEDS: SIMVASTATIN 20 MG TABLET PO SCH (21:22)
[2017-07-13] MEDS: LOSARTAN POTASSIUM 50 MG TABLET PO SCH (21:22)
[2017-07-14] MEDS: METHYLPREDNISOLONE SOD SUCC 60 MG in WATER FOR INJ.,BACTERIOSTATIC 0 ML IV SCH ×4 (02:50→20:58)
[2017-07-14] MEDS: LEVOTHYROXINE SODIUM 100 MCG TABLET PO SCH (06:38)
[2017-07-14] MEDS: PANTOPRAZOLE SODIUM 40 MG TABLET.EC PO SCH (06:39)
[2017-07-14] MEDS: ALBUTEROL SULFATE/IPRATROPIUM 3 ML NEBU IH SCH ×4 (07:15→18:08)
[2017-07-14] MEDS: BUDESONIDE 0.5 MG/2 ML VIAL.NEB IH SCH ×2 (07:16→18:09)
[2017-07-14] MEDS: FELODIPINE 5 MG TAB.SR.24H PO SCH (08:35)
[2017-07-14] MEDS: CARVEDILOL 12.5 MG TABLET PO SCH ×2 (08:35→20:57)
[2017-07-14] MEDS: clonazePAM 0.5 MG TABLET PO SCH ×3 (08:40→16:55)
[2017-07-14] MEDS: NORMAL SALINE 1,000 ML IV PRN (10:38)
[2017-07-14] MEDS: ALBUTEROL SULFATE 2.5 MG/0.5 ML VIAL.NEB IH PRN (14:14)
[2017-07-14] MEDS ORDERED: LEVOFLOXACIN 750 MG TABLET PO ONE (16:30)
[2017-07-14] MEDS ORDERED: LEVOFLOXACIN 750 MG TABLET PO SCH (16:30)
--- NOTE | 2017-07-14 18:30 | PN ---
Subjective - Date and Time Seen Date: 07/14/17 Time: 18:30 Subjective Narrative: [place] reports severe shortness of breath, fatigue, weakness, and productive coughing. Objective - Vitals Vitals: Last Vital Signs Temp 36.5 C 07/14/17 15:31 Pulse 81 07/14/17 18:09 Resp 18 07/14/17 18:09 BP 154/76 07/14/17 15:31 Pulse Ox 94 07/14/17 18:09 - Exam Constitutional: Present: Alert, Oriented x3, Cooperative Respiratory: Present: decreased breath sounds, wheezing Cardiovascular/Chest: Present: regular rate, rhythm, no murmur Abdomen: Present: Normal bowel sounds, soft, nontender, nondistended Skin Exam: Present: normal color, warm/dry, no cyanosis Assessment/Plan Plan Narrative: [place] is an 87 yo female with severe dyspnea with COPD exacerbation. She is unable to get out of bed and ambulate due to dyspnea. Breathing is difficult even in bed. She has severely elevated blood pressure. She will need > 2 more midnights to decrease the inflammation in lungs for dyspnea/COPD exacerbation. Will continue IV steroids and antibiotics for COPD exacerbation. Patient is anxious with dyspnea and blood pressure is usually controlled. Will give anxiolytics, if blood pressure remains elevated >180 systolic will add antihypertensives. Will make patient acute inpatient for further need for inpatient treatment. - Problems/Diagnosis (1) COPD exacerbation Problem: Acute (2) Accelerated hypertension Problem: Acute (3) Hypertensive urgency Problem: Acute
[2017-07-14] MEDS: POLYETHYLENE GLYCOL 3350 119 GM BTL PO SCH (19:27)
[2017-07-14] MEDS: LOSARTAN POTASSIUM 50 MG TABLET PO SCH (20:58)
[2017-07-14] MEDS: SIMVASTATIN 20 MG TABLET PO SCH (20:58)
[2017-07-14] MEDS ORDERED: ENOXAPARIN SODIUM 40 MG/0.4 ML SYRG SC SCH (23:45)
[2017-07-15] MEDS ORDERED: ENOXAPARIN SODIUM 40 MG/0.4 ML SYRG SC SCH (00:05)
[2017-07-15] MEDS ORDERED: ENALAPRILAT DIHYDRATE 1.25 MG/ML VIAL IV ONE (02:30)
[2017-07-15] MEDS: METHYLPREDNISOLONE SOD SUCC 60 MG in WATER FOR INJ.,BACTERIOSTATIC 0 ML IV SCH ×4 (03:09→21:40)
[2017-07-15] MEDS: BUDESONIDE 0.5 MG/2 ML VIAL.NEB IH SCH ×2 (06:08→18:16)
[2017-07-15] MEDS: ALBUTEROL SULFATE/IPRATROPIUM 3 ML NEBU IH SCH ×4 (06:09→18:16)
[2017-07-15] MEDS: NORMAL SALINE 1,000 ML IV PRN (06:41)
[2017-07-15] MEDS: PANTOPRAZOLE SODIUM 40 MG TABLET.EC PO SCH (06:42)
[2017-07-15] MEDS: LEVOTHYROXINE SODIUM 100 MCG TABLET PO SCH (06:42)
[2017-07-15] MEDS: CARVEDILOL 12.5 MG TABLET PO SCH ×2 (08:51→21:38)
[2017-07-15] MEDS: HYDROCHLOROTHIAZIDE 25 MG TABLET PO SCH (08:51)
[2017-07-15] MEDS: hydrALAZINE HCL 10 MG TABLET PO SCH ×3 (08:51→21:37)
[2017-07-15] MEDS: FELODIPINE 5 MG TAB.SR.24H PO SCH (08:52)
[2017-07-15] MEDS: ENOXAPARIN SODIUM 40 MG/0.4 ML SYRG SC SCH (08:52)
[2017-07-15] MEDS: clonazePAM 0.5 MG TABLET PO SCH ×3 (08:55→16:25)
--- NOTE | 2017-07-15 12:14 | PN ---
Subjective - Date and Time Seen Date: 07/15/17 Time: 12:14 Subjective Narrative: Short of breath. Headache, dizzy. Does not feel well. Objective - Vitals Vitals: Last Vital Signs Temp 36.4 C L 07/15/17 10:40 Pulse 70 07/15/17 10:40 Resp 18 07/15/17 10:40 BP 193/86 07/15/17 10:40 Pulse Ox 92 07/15/17 10:40 - Exam Constitutional: Present: Alert, Oriented x3, Cooperative ENT Exam: Present: hard of hearing Respiratory: Present: decreased breath sounds, wheezing, other - visible dyspnea Cardiovascular/Chest: Present: regular rate, rhythm, no murmur Abdomen: Present: Normal bowel sounds, soft, nontender, nondistended Skin Exam: Present: normal color, warm/dry, no cyanosis Assessment/Plan Plan Narrative: [place] remains very dyspneic. No episodes of hypoxia. Blood pressures are severely elevated, >180 systolic. Not stable for discharge. On home medications. Adding HCTZ, may add hydralazine. Continue treatment of COPD exacerbation and bronchitis with antibiotics, steroids, and breathing treatments. - Problems/Diagnosis (1) COPD exacerbation Problem: Resolved (2) Accelerated hypertension Problem: Acute (3) Hypertensive urgency Problem: Acute
[2017-07-15] MEDS: POLYETHYLENE GLYCOL 3350 119 GM BTL PO SCH (21:36)
[2017-07-15] MEDS: LOSARTAN POTASSIUM 50 MG TABLET PO SCH (21:39)
[2017-07-15] MEDS: SIMVASTATIN 20 MG TABLET PO SCH (21:40)
[2017-07-16] MEDS: hydrALAZINE HCL 10 MG TABLET PO SCH ×4 (02:52→22:23)
[2017-07-16] MEDS: METHYLPREDNISOLONE SOD SUCC 60 MG in WATER FOR INJ.,BACTERIOSTATIC 0 ML IV SCH ×4 (02:54→22:23)
[2017-07-16] MEDS: ALBUTEROL SULFATE 2.5 MG/0.5 ML VIAL.NEB IH PRN (03:03)
[2017-07-16 06:02] LABS: Hematocrit 33.8 % (37.0-47.0); Hemoglobin 11.9 gm/dL (12.5-16.0); Mean Cell Volume 85.4 fl (78-100); Mean Corpuscular Hemoglobin 30.1 pg (27-31); Mean Corpuscular Hgb Conc 35.2 g/dl (32-36); Mean Platelet Volume 9.9 fl (6.0-9.5); Neutrophil # 6.7 K/mm3 (1.3-6.0); Neutrophil % 84.2 % (42-75.0); Platelet Count 239 K/mm3 (150-450); Red Blood Count 3.96 M/mm3 (4.2-5.4); Red Cell Distribution Width 12.1 % (11.5-14.0)
[2017-07-16] MEDS: BUDESONIDE 0.5 MG/2 ML VIAL.NEB IH SCH ×2 (06:05→18:33)
[2017-07-16] MEDS: ALBUTEROL SULFATE/IPRATROPIUM 3 ML NEBU IH SCH ×4 (06:05→18:34)
[2017-07-16 06:26] LABS: Albumin * 3.1 gm/dl (3.4-5.0); Anion Gap 11.6 mmol/L (6.8-13.8); BUN/Creatinine Ratio 26.8 (9.0-21.6); Bilirubin, Total 0.4 mg/dL (0.0-1.1); Ca. Corrected For Albumin 9.9 mg/dL (8.4-10.2); Calcium * 9.5 mg/dL (7.9-10.9); Carbon Dioxide 29.6 mmol/L (24-32.6); Potassium 3.2 mmol/L (3.4-4.6); Total Protein 6.2 gm/dL (6.2-8.2)
[2017-07-16] MEDS: LEVOTHYROXINE SODIUM 100 MCG TABLET PO SCH (07:27)
[2017-07-16] MEDS: PANTOPRAZOLE SODIUM 40 MG TABLET.EC PO SCH (07:27)
[2017-07-16] MEDS: HYDROCHLOROTHIAZIDE 25 MG TABLET PO SCH (09:20)
[2017-07-16] MEDS: FELODIPINE 5 MG TAB.SR.24H PO SCH (09:20)
[2017-07-16] MEDS: ENOXAPARIN SODIUM 40 MG/0.4 ML SYRG SC SCH (09:20)
[2017-07-16] MEDS: CARVEDILOL 12.5 MG TABLET PO SCH ×2 (09:20→22:21)
[2017-07-16] MEDS: clonazePAM 0.5 MG TABLET PO SCH ×3 (09:29→16:14)
[2017-07-16] MEDS ORDERED: POTASSIUM CHLORIDE 20 MEQ TABLET.SA PO ONE (09:52)
[2017-07-16] MEDS ORDERED: LEVOFLOXACIN 750 MG TABLET PO SCH (11:00)
--- NOTE | 2017-07-16 17:01 | PN ---
Subjective - Date and Time Seen Date: 07/16/17 Time: 16:45 Subjective Narrative: [place] is an 87 yo female that reports continued shortness of breath, cough, and wheezing. She reports her breathing is worse today. No fever, chills , or vomiting. Objective - Vitals Vitals: Last Vital Signs Temp 36.4 C L 07/16/17 15:15 Pulse 71 07/16/17 15:30 Resp 18 07/16/17 15:15 BP 151/65 07/16/17 15:30 Pulse Ox 93 07/16/17 15:15 - Abnormal Lab Findings Abnormal Lab Findings: Abnormal Lab Results 07/16/17 07/16/17 Range/Units 05:51 05:51 RBC 3.96 L (4.2-5.4) M/mm3 Hgb 11.9 L (12.5-16.0) gm/dL Hct 33.8 L (37.0-47.0) % MPV 9.9 H (6.0-9.5) fl Immature Gran % (Auto) 1.10 H (0.001-0.429) % Immature Gran # (Auto) 0.09 H (0.000-0.0310) K/mm3 Neutrophils % 84.2 H (42-75.0) % Lymphocytes % 11.2 L (20-51) % Neutrophils # 6.7 H (1.3-6.0) K/mm3 Lymphocytes # 0.89 L (1.5-3.5) k/mm3 Potassium 3.2 L (3.4-4.6) mmol/L Chloride 95 L (97-106) mmol/L BUN 30 H (3-23) mg/dL Est GFR (Non-Af Amer) 49 L (60-130) mL/min BUN/Creatinine Ratio 26.8 H (9.0-21.6) Random Glucose 153 H D (70-110) mg/dL Alkaline Phosphatase 49 L (50-170) U/L Albumin 3.1 L (3.4-5.0) gm/dl - Exam Constitutional: Present: Alert, Oriented x3, Other - anxious Respiratory: Present: decreased breath sounds - improved air movement compared to yesterday, wheezing Cardiovascular/Chest: Present: regular rate, rhythm, no murmur Skin Exam: Present: normal color, warm/dry, no cyanosis Assessment/Plan Plan Narrative: [place] is an 87 yo female with: 1) COPD exacerbation - continue steroids, antibiotics, breathing treatments. Will add incentive spirometer and cornet. Unsure if she will be compliant with using these with her dementia. Air movement is improving. Patient continues to report worsening dyspnea, but suspect this may be mostly anxiety compounded with her dementia. Will repeat chest xray in AM. 2) Accelerated Hypertension/Hypertensive Urgency - Blood pressure significantly elevated >180 systolic this AM, clonazepam was increased to 1mg TID and blood pressure improved to 130 systolic. HCTZ 25mg and Hydralazine 10mg TID was also started yesterday, but have not seen significant improvement with these. Suspect hypertension to be secondary to acute illness and anxiety. If blood pressure remains controlled overnight will plan to discharge to home tomorrow. - Problems/Diagnosis (1) COPD exacerbation Problem: Acute (2) Accelerated hypertension Problem: Acute (3) Hypertensive urgency Problem: Acute
[2017-07-16] MEDS: POLYETHYLENE GLYCOL 3350 119 GM BTL PO SCH (22:14)
[2017-07-16] MEDS: LOSARTAN POTASSIUM 50 MG TABLET PO SCH (22:15)
[2017-07-16] MEDS: SIMVASTATIN 20 MG TABLET PO SCH (22:24)
[2017-07-17] MEDS: hydrALAZINE HCL 10 MG TABLET PO SCH (01:55)
[2017-07-17] MEDS: METHYLPREDNISOLONE SOD SUCC 60 MG in WATER FOR INJ.,BACTERIOSTATIC 0 ML IV SCH (02:03)
[2017-07-17] MEDS: ALBUTEROL SULFATE/IPRATROPIUM 3 ML NEBU IH SCH ×3 (05:25→10:11)
[2017-07-17] MEDS: BUDESONIDE 0.5 MG/2 ML VIAL.NEB IH SCH ×2 (05:51→06:09)
[2017-07-17] MEDS: PANTOPRAZOLE SODIUM 40 MG TABLET.EC PO SCH (06:31)
[2017-07-17] MEDS: LEVOTHYROXINE SODIUM 100 MCG TABLET PO SCH (06:31)
[2017-07-17] MEDS ORDERED: predniSONE 20 MG TABLET PO SCH (09:00)
[2017-07-17] MEDS ORDERED: hydrALAZINE HCL 25 MG TABLET PO SCH (09:00)
[2017-07-17] MEDS: clonazePAM 0.5 MG TABLET PO SCH ×2 (09:11→13:38)
[2017-07-17] MEDS: ENOXAPARIN SODIUM 40 MG/0.4 ML SYRG SC SCH (09:12)
[2017-07-17] MEDS: CARVEDILOL 12.5 MG TABLET PO SCH (09:12)
[2017-07-17] MEDS: HYDROCHLOROTHIAZIDE 25 MG TABLET PO SCH (09:12)
[2017-07-17] MEDS: FELODIPINE 5 MG TAB.SR.24H PO SCH (09:12)
--- NOTE | 2017-07-17 12:14 | DS ---
(1) COPD exacerbation Problem: Resolved (2) Accelerated hypertension Problem: Acute (3) Hypertensive urgency Problem: Acute (4) Anxiety Diagnosis(s): Clonazapam increased to 1mg TID. Problem: Chronic Description of Stay: Africa was admitted with severe dyspnea and diagnosed with COPD exacerbation secondary to bronchitis. She was treated with azithromycin, levaquin, prednisone , and breathing treatments. She had no episodes of hypoxia, but was having significant respiratory distress. This gradually improved with treatment. She also had accelerated hypertension with hypertensive urgency. She was continued on her home blood pressure medications as well as the initial addition of HCTZ. Blood pressure continued to be severely elevated and hydralazine was added as well. These medications will be continued at discharge. Procedures Performed: none Discharge Location: [facility] Disposition: Home self-care Condition: Fair Discharge Activity: Activity as tolerated Discharge Diet: General/regular food Referrals: Lalo Real DO [Primary Care Provider] - One Week Problem Oriented Discharge Instructions to Patient/Family: Chronic Obstructive Pulmonary Disease Exacerbation, [id number], Hypertension, [id number] Additional Patient Instructions (free text): -Please make TCM appointment unless custodial discharge. Thank you! Sylvia @ [phone]. Follow up appointment with Dr. Real on 07/23/17 at 10:00am. Prescriptions (Any new or edited meds): clonazePAM [Klonopin] 1 mg PO TID #90 tablet Complete Home Medications List: Complete Home Medication List: Aspirin [Aspirin Enteric Coated] 81 mg PO DAILY 10/26/13 Multivitamin [Multi-Vitamin Daily] 1 each PO DAILY 10/26/13 Carvedilol [Coreg] 12.5 mg PO BID 06/16/16 Felodipine [Felodipine ER] 2.5 mg PO DAILY 06/16/16 Irbesartan [Avapro] 300 mg PO HS 06/16/16 Levothyroxine Sodium [Synthroid] 100 mcg PO DAILY 06/16/16 Methyl Salicylate/Menth/Camph [Salonpas Patch] 1 each TP PRN PRN 06/16/16 Nitroglycerin [Nitrostat] 0.4 mg SL Q5MIN PRN 06/16/16 Omeprazole 40 mg PO 0700 06/16/16 Polyethylene Glycol 3350 [Miralax] 17 gm PO DAILY PRN 06/16/16 Simvastatin 20 mg PO HS 06/16/16 Acetaminophen with Codeine [Tylenol-Codeine 300 MG/30 MG] 300 mg PO BID Acetaminophen [Tylenol] 1,000 mg PO TID 07/13/17 Meloxicam [Mobic] 15 mg PO DAILY 07/13/17 clonazePAM [Klonopin] 1 mg PO TID #90 tablet 07/17/17 Albuterol Sulfate [Ventolin HFA] 2 puff IH QID PRN 07/23/17 Hydrochlorothiazide [Hydrodiuril] 25 mg PO DAILY 07/23/17 predniSONE [Prednisone] See Taper PO DAILY 15 Days #22 tablet 07/26/17
[2017-07-17 13:37] VITALS: BP 141/54
== END 2017-07-17 14:10 | disposition home or self-care (01) | DRG 192 ==
LOC: ER 08:26 → MS 10:46 → OBSVTOIN 07-14 16:29
PROVIDERS: ADMIT Internal Medicine; ATTEND Family Medicine
DX: E78.5 Hyperlipidemia, unspecified; I65.23 Occlusion and stenosis of bilateral carotid arteries; F41.9 Anxiety disorder, unspecified; Z88.8 Allergy status to other drugs, medicaments and biological substances; J44.1 Chronic obstructive pulmonary disease with (acute) exacerbation; E03.9 Hypothyroidism, unspecified; I16.0 Hypertensive urgency; Z95.5 Presence of coronary angioplasty implant and graft; I25.2 Old myocardial infarction; I25.10 Atherosclerotic heart disease of native coronary artery without angina pectoris
CPT/HCPCS: 36415; 71046; 80053; 83880; 84484; 85025; 86738; 87081; 93005; 94640; 96374; 99285; G0378